=== PATIENT | male | born 1975 | race Caucasian/White ===

== ENCOUNTER 2020-09-14 14:27 | Emergency (ER) | payer MEDICARE, MEDICAID ==
[~2020-09-14] VITALS: Ht 179.1 cm; Wt 61.9 kg
[2020-09-14 15:45] LABS: BASOPHILS # (AUTO) 0.2 X10'3 (0-0.2); EOSINOPHILS # (AUTO) 0.4 X10'3 (0-0.9); HEMATOCRIT 33.5 % (42.0-52.0); LYMPHOCYTES # (AUTO) 2.4 X10'3 (1.1-4.8); MEAN CORPUSCULAR HGB CONC 32.4 g/dL (33.0-36.5); MEAN PLATELET VOLUME 6.9 FL (7.4-10.4); MONOCYTES # (AUTO) 0.8 X10'3 (0-0.9)
[2020-09-14 15:47] LABS: BASOPHILS % (AUTO) 2.3 % (0-1); EOSINOPHILS % (AUTO) 4.8 % (0-6); HEMOGLOBIN 10.9 g/dl (14.0-17.9); LYMPHOCYTES % (AUTO) 28.6 % (21-51); MEAN CORPUSCULAR HEMOGLOBIN 29.3 PG (27.0-31.0); MEAN CORPUSCULAR VOLUME 90.4 FL (78-98); MONOCYTES % (AUTO) 9.2 % (2-12); NEUTROPHILS # (AUTO) 4.6 X10'3 (1.8-7.7); NEUTROPHILS % (AUTO) 55.1 % (42-75); PLATELET COUNT 365 X10'3 (140-440); RED BLOOD COUNT 3.71 X10'6 (4.70-6.10); WHITE BLOOD COUNT 8.4 X10'3 (4.5-11.0)
[2020-09-14 15:59] LABS: ALANINE AMINOTRANSFERASE 29 U/L (12-78); ALBUMIN 3.1 G/DL (3.4-5.0); ALBUMIN/GLOBULIN RATIO 0.8 (1.1-1.5); ALKALINE PHOSPHATASE 103 IU/L (46-116); ANION GAP 9 (8-16); ASPARTATE AMINO TRANSFERASE 30 U/L (10-37); BILIRUBIN,TOTAL 0.2 MG/DL (0.1-1.0); BLOOD UREA NITROGEN 10 MG/DL (7-18); BUN/CREATININE RATIO 9.3 (5.4-32.0); CALCIUM 8.4 MG/DL (8.5-10.1); CHLORIDE 106 MMOL/L (99-107); CREATININE 1.08 MG/DL (0.60-1.10); GLUCOSE 92 MG/DL (70-104); LIPASE 75 U/L (73-393); POTASSIUM 3.7 MMOL/L (3.5-5.1); SODIUM 142 MMOL/L (135-145); TOTAL PROTEIN 6.9 G/DL (6.4-8.2); eGFR 74 ML/MIN
[2020-09-14 17:29] LABS: TOTAL CELLS COUNTED 100
[2020-09-14 17:30] LABS: LARGE PLATELETS FEW; PLATELET ESTIMATE NORMAL
[2020-09-14 17:31] LABS: HYPOCHROMASIA 1+
[2020-09-14] MEDS ORDERED: pantoprazole 40 MG vial IV ONE (19:35)
[2020-09-14] MEDS ORDERED: normal saline 1000ML IV soln IVB ONE (19:35)
[2020-09-14] MEDS ORDERED: mag hydrox/Alum hydrox/simeth 30ml oral suspension PO ONE (19:35)
[2020-09-14] MEDS ORDERED: LIDOcaine Viscous 15ml cup MM ONE (19:35)
[2020-09-14] MEDS ORDERED: ondansetron/PF 4mg/2ml inj IV ONE (19:35)
[2020-09-14] MEDS ORDERED: ONDA4TAB12 PO (21:23)
[2020-09-14 21:38] LABS: CLARITY,URINE CLEAR (Clear); COLOR,URINE YELLOW (Yellow); GLUCOSE, URINE NEGATIVE (Neg); KETONES,URINE NEGATIVE (Neg); LEUKOCYTE ESTERASE ,URINE NEGATIVE (Neg); NITRITES, URINE NEGATIVE (Neg); OCCULT BLOOD,URINE NEGATIVE (Neg); PH,URINE 5.5 (4.8-8.0); PROTEIN,URINE NEGATIVE (Neg); UROBILINOGEN,URINE 0.2 E.U/dL (0.2-1.0)
[2020-09-14 21:46] LABS: UA COLLECTION TYPE CLN CATCH MIDSTREAM
[2020-09-14 21:56] VITALS: BP 156/102
== END 2020-09-14 21:59 | disposition home or self-care (01) ==
LOC: ER 14:28
DX: A08.4 Viral intestinal infection, unspecified (principal); R11.2 Nausea with vomiting, unspecified; R07.89 Other chest pain; I10 Essential (primary) hypertension; J45.909 Unspecified asthma, uncomplicated; F17.200 Nicotine dependence, unspecified, uncomplicated; Z98.890 Other specified postprocedural states; Z59.0 Homelessness; Z79.899 Other long term (current) drug therapy
CPT/HCPCS: 36415; 80053; 81003; 83690; 85007; 85025; 93005; 96361; 96374; 96375; 99284; C9113; J2405; J7030

== ENCOUNTER 2020-09-15 12:25 | Emergency (ER) | payer MEDICAID, MEDICARE ==
[~2020-09-15] VITALS: Ht 177.8 cm; Wt 60.2 kg
[~2020-09-15 12:25] MED LIST: ONDA4TAB12 PO
[2020-09-15] MEDS ORDERED: ondansetron/PF 4mg/2ml inj IV ONE (13:55)
[2020-09-15] MEDS ORDERED: pantoprazole 40 MG vial IV ONE (13:55)
[2020-09-15] MEDS ORDERED: mag hydrox/Alum hydrox/simeth 30ml oral suspension PO ONE (13:55)
[2020-09-15] MEDS ORDERED: normal saline 1000ML IV soln IVB ONE (13:55)
[2020-09-15] MEDS ORDERED: LIDOcaine Viscous 15ml cup MM PRN (14:10)
[2020-09-15 14:43] LABS: EOSINOPHILS # (AUTO) 0.3 X10'3 (0-0.9); HEMOGLOBIN 10.5 g/dl (14.0-17.9); LYMPHOCYTES # (AUTO) 2.2 X10'3 (1.1-4.8); MONOCYTES # (AUTO) 0.7 X10'3 (0-0.9); RED BLOOD COUNT 3.57 X10'6 (4.70-6.10); WHITE BLOOD COUNT 7.1 X10'3 (4.5-11.0)
[2020-09-15 14:55] LABS: PARTIAL THROMBOPLASTIN TIME 30 SECONDS (22-32)
[2020-09-15 14:57] LABS: ALANINE AMINOTRANSFERASE 28 U/L (12-78); ALBUMIN 2.8 G/DL (3.4-5.0); ALBUMIN/GLOBULIN RATIO 0.8 (1.1-1.5); ALKALINE PHOSPHATASE 86 IU/L (46-116); ANION GAP 8 (8-16); ASPARTATE AMINO TRANSFERASE 24 U/L (10-37); BILIRUBIN,TOTAL 0.3 MG/DL (0.1-1.0); BLOOD UREA NITROGEN 8 MG/DL (7-18); BUN/CREATININE RATIO 8.8 (5.4-32.0); CALCIUM 8.3 MG/DL (8.5-10.1); CHLORIDE 107 MMOL/L (99-107); CREATININE 0.91 MG/DL (0.60-1.10); GLUCOSE 75 MG/DL (70-104); POTASSIUM 3.8 MMOL/L (3.5-5.1); SODIUM 141 MMOL/L (135-145); TOTAL CARBON DIOXIDE 25.7 MMOL/L (24-32); TOTAL PROTEIN 6.4 G/DL (6.4-8.2); eGFR > 90 ML/MIN
[2020-09-15 15:02] LABS: LIPASE < 50 U/L (73-393); TROPONIN I < 0.04 NG/ML (0.0-0.05)
[2020-09-15 15:32] LABS: BASOPHILS # (AUTO) 0.2 X10'3 (0-0.2); BASOPHILS % (AUTO) 2.7 % (0-1); EOSINOPHILS % (AUTO) 4.4 % (0-6); LYMPHOCYTES % (AUTO) 30.6 % (21-51); MEAN CORPUSCULAR HEMOGLOBIN 29.3 PG (27.0-31.0); MEAN CORPUSCULAR HGB CONC 32.7 g/dL (33.0-36.5); MEAN CORPUSCULAR VOLUME 89.6 FL (78-98); MEAN PLATELET VOLUME 6.8 FL (7.4-10.4); NEUTROPHILS # (AUTO) 3.7 X10'3 (1.8-7.7); NEUTROPHILS % (AUTO) 52.3 % (42-75); PLATELET COUNT 335 X10'3 (140-440); RED CELL DISTRIBUTION WIDTH 15.1 % (11.5-14.5)
[2020-09-15 16:00] LABS: CLARITY,URINE SLIGHTLY CLOUDY (Clear); COLOR,URINE YELLOW (Yellow); GLUCOSE, URINE NEGATIVE (Neg); KETONES,URINE TRACE mg/dl (Neg); LEUKOCYTE ESTERASE ,URINE NEGATIVE (Neg); NITRITES, URINE NEGATIVE (Neg); OCCULT BLOOD,URINE NEGATIVE (Neg); PH,URINE 5.5 (4.8-8.0); PROTEIN,URINE NEGATIVE (Neg); UROBILINOGEN,URINE 0.2 E.U/dL (0.2-1.0)
[2020-09-15 16:02] LABS: UA COLLECTION TYPE URINAL
[2020-09-15 16:11] LABS: SQUAMOUS EPITHELIAL CELL,UR FEW /LPF (FEW)
[2020-09-15 16:12] LABS: BACTERIA,URINE NONE SEEN /HPF (Neg); RBC,URINE NONE SEEN /HPF (0-2); WBC,URINE NONE SEEN /HPF (0-4)
[2020-09-15 17:22] VITALS: BP 134/98
== END 2020-09-15 17:25 | disposition home or self-care (01) ==
LOC: ER 12:26
DX: A08.4 Viral intestinal infection, unspecified (principal); I10 Essential (primary) hypertension; J45.909 Unspecified asthma, uncomplicated
CPT/HCPCS: 36415; 71045; 80053; 81001; 83690; 84484; 85025; 85610; 85730; 93005; 96361; 96374; 96375; 99285; C9113; J2405; J7030

== ENCOUNTER 2020-09-16 17:50 | Emergency (ER) | payer MEDICAID ==
[~2020-09-16] VITALS: Ht 179.1 cm; Wt 63.0 kg
[2020-09-16 17:59] VITALS: BP 148/82
[2020-09-16 20:46] LABS: BASOPHILS # (AUTO) 0.3 X10'3 (0-0.2); EOSINOPHILS # (AUTO) 0.2 X10'3 (0-0.9); RED CELL DISTRIBUTION WIDTH 15.5 % (11.5-14.5); WHITE BLOOD COUNT 10.3 X10'3 (4.5-11.0)
[2020-09-16 20:47] LABS: BASOPHILS % (AUTO) 2.6 % (0-1); EOSINOPHILS % (AUTO) 2.4 % (0-6); HEMATOCRIT 33.3 % (42.0-52.0); HEMOGLOBIN 11.1 g/dl (14.0-17.9); LYMPHOCYTES # (AUTO) 2.6 X10'3 (1.1-4.8); LYMPHOCYTES % (AUTO) 25.4 % (21-51); MEAN CORPUSCULAR HEMOGLOBIN 29.9 PG (27.0-31.0); MEAN CORPUSCULAR HGB CONC 33.3 g/dL (33.0-36.5); MEAN PLATELET VOLUME 7.2 FL (7.4-10.4); MONOCYTES # (AUTO) 0.9 X10'3 (0-0.9); MONOCYTES % (AUTO) 9.1 % (2-12); NEUTROPHILS # (AUTO) 6.2 X10'3 (1.8-7.7); NEUTROPHILS % (AUTO) 60.5 % (42-75); PLATELET COUNT 389 X10'3 (140-440)
[2020-09-16] MEDS ORDERED: normal saline 1000ML IV soln IVB ONE (20:50)
[2020-09-16] MEDS ORDERED: diphenhydrAMINE 50 mg/ml inj IV ONE (20:50)
[2020-09-16] MEDS ORDERED: metoclopramide 5 mg/ml inj IV ONE (20:50)
[2020-09-16 20:58] LABS: ALANINE AMINOTRANSFERASE 21 U/L (12-78); ALBUMIN 3.2 G/DL (3.4-5.0); ALBUMIN/GLOBULIN RATIO 0.8 (1.1-1.5); ALKALINE PHOSPHATASE 99 IU/L (46-116); BILIRUBIN,TOTAL 0.3 MG/DL (0.1-1.0); BLOOD UREA NITROGEN 8 MG/DL (7-18); BUN/CREATININE RATIO 7.8 (5.4-32.0); CALCIUM 8.6 MG/DL (8.5-10.1); CHLORIDE 105 MMOL/L (99-107); CREATININE 1.03 MG/DL (0.60-1.10); GLUCOSE 98 MG/DL (70-104); TOTAL CARBON DIOXIDE 26.2 MMOL/L (24-32); TOTAL PROTEIN 7.2 G/DL (6.4-8.2); eGFR 78 ML/MIN
[2020-09-16 21:04] LABS: ANION GAP 5 (8-16); POTASSIUM 4.7 MMOL/L (3.5-5.1); SODIUM 136 MMOL/L (135-145)
[2020-09-16 21:09] LABS: ASPARTATE AMINO TRANSFERASE 34 U/L (10-37)
[2020-09-16] MEDS ORDERED: mag hydrox/Alum hydrox/simeth 30ml oral suspension PO ONE (21:15)
[2020-09-16] MEDS ORDERED: LIDOcaine Viscous 15ml cup MM ONE (21:15)
[2020-09-16] MEDS ORDERED: ondansetron/PF 4mg/2ml inj IV ONE (21:35)
[2020-09-17] MEDS ORDERED: PROC25SU31 RC (16:56)
== END 2020-09-16 22:14 | disposition home or self-care (01) ==
LOC: ER 17:50
DX: R11.2 Nausea with vomiting, unspecified (principal); R10.13 Epigastric pain; I10 Essential (primary) hypertension; J45.909 Unspecified asthma, uncomplicated; Z98.890 Other specified postprocedural states; Z59.0 Homelessness; Z79.899 Other long term (current) drug therapy
CPT/HCPCS: 36415; 80053; 85025; 96361; 96374; 96375; 99284; J1200; J2405; J2765; J7030

== ENCOUNTER 2020-09-17 13:41 | Emergency (ER) | payer MEDICARE, MEDICAID ==
[~2020-09-17] VITALS: Ht 177.8 cm; Wt 61.9 kg
[2020-09-17] MEDS ORDERED: ondansetron 4mg rapidly disintigrating tab PO ONE (16:00)
[2020-09-17] MEDS ORDERED: PROC25SU31 RC (16:56)
[2020-09-17] MEDS ORDERED: mag hydrox/Alum hydrox/simeth 30ml oral suspension PO ONE (17:00)
[2020-09-17] MEDS ORDERED: LIDOcaine Viscous 15ml cup MM ONE (17:00)
[2020-09-17 17:07] VITALS: BP 137/90
[2020-09-17] MEDS ORDERED: diphenhydrAMINE 50 mg/ml inj IM ONE (17:15)
[2020-09-17] MEDS ORDERED: proCHLORperazine 10 MG/2 ml inj IM ONE (17:15)
== END 2020-09-17 18:02 | disposition home or self-care (01) ==
LOC: ER 13:41
DX: R11.2 Nausea with vomiting, unspecified (principal); I10 Essential (primary) hypertension; J45.909 Unspecified asthma, uncomplicated; Z59.0 Homelessness; Z79.899 Other long term (current) drug therapy
CPT/HCPCS: 96372; 99285; J0780; J1200

== ENCOUNTER 2020-09-18 12:23 | Emergency (ER) | payer MEDICARE, MEDICAID ==
[~2020-09-18] VITALS: Ht 177.8 cm; Wt 67.7 kg
[~2020-09-18 12:23] MED LIST changes: +PROC25SU31 RC
[2020-09-18] MEDS ORDERED: ondansetron/PF 4mg/2ml inj IV ONE (12:40)
[2020-09-18] MEDS ORDERED: normal saline 1000ML IV soln IVB ONE (12:40)
[2020-09-18 13:04] LABS: BASOPHILS % (AUTO) 0.5 % (0-1); EOSINOPHILS # (AUTO) 0.2 X10'3 (0-0.9); EOSINOPHILS % (AUTO) 3.2 % (0-6); HEMATOCRIT 35.9 % (42.0-52.0); HEMOGLOBIN 11.8 g/dl (14.0-17.9); LYMPHOCYTES # (AUTO) 2.6 X10'3 (1.1-4.8); LYMPHOCYTES % (AUTO) 34.5 % (21-51); MEAN CORPUSCULAR HEMOGLOBIN 29.2 PG (27.0-31.0); MEAN CORPUSCULAR VOLUME 88.4 FL (78-98); MEAN PLATELET VOLUME 7.1 FL (7.4-10.4); MONOCYTES # (AUTO) 0.6 X10'3 (0-0.9); MONOCYTES % (AUTO) 8.4 % (2-12); NEUTROPHILS % (AUTO) 53.4 % (42-75); PLATELET COUNT 421 X10'3 (140-440); RED BLOOD COUNT 4.06 X10'6 (4.70-6.10); RED CELL DISTRIBUTION WIDTH 15.2 % (11.5-14.5); WHITE BLOOD COUNT 7.6 X10'3 (4.5-11.0)
[2020-09-18 13:17] LABS: ALANINE AMINOTRANSFERASE 26 U/L (12-78); ALBUMIN 3.3 G/DL (3.4-5.0); ALBUMIN/GLOBULIN RATIO 0.8 (1.1-1.5); ALKALINE PHOSPHATASE 100 IU/L (46-116); ANION GAP 12 (8-16); ASPARTATE AMINO TRANSFERASE 32 U/L (10-37); BILIRUBIN,TOTAL 0.4 MG/DL (0.1-1.0); BLOOD UREA NITROGEN 9 MG/DL (7-18); CHLORIDE 106 MMOL/L (99-107); CREATININE 1.13 MG/DL (0.60-1.10); GLUCOSE 93 MG/DL (70-104); LIPASE < 50 U/L (73-393); POTASSIUM 3.8 MMOL/L (3.5-5.1); SODIUM 142 MMOL/L (135-145); TOTAL CARBON DIOXIDE 23.8 MMOL/L (24-32); TOTAL PROTEIN 7.4 G/DL (6.4-8.2); eGFR 70 ML/MIN
[2020-09-18] MEDS ORDERED: sucralfate 1gm/10ml UD suspension PO STA (14:23)
[2020-09-18] MEDS ORDERED: mag hydrox/Alum hydrox/simeth 30ml oral suspension PO ONE (14:25)
[2020-09-18] MEDS ORDERED: LIDOcaine Viscous 15ml cup MM ONE (14:25)
[2020-09-18] MEDS ORDERED: famotidine/PF 10 mg/ml inj IV ONE (14:25)
[2020-09-18 15:21] VITALS: BP 140/80
== END 2020-09-18 15:27 | disposition home or self-care (01) ==
LOC: ER 12:25
DX: R11.2 Nausea with vomiting, unspecified (principal); K52.9 Noninfective gastroenteritis and colitis, unspecified; R10.13 Epigastric pain; E86.0 Dehydration; I10 Essential (primary) hypertension; J45.909 Unspecified asthma, uncomplicated; Z98.890 Other specified postprocedural states; Z59.0 Homelessness; Z79.899 Other long term (current) drug therapy
CPT/HCPCS: 36415; 80053; 83690; 85025; 96361; 96374; 96375; 99284; J2405; J3490; J7030